=== PATIENT | male | born 1985 | race Caucasian/White ===

== ENCOUNTER → 2022-09-16 13:44 | Outpatient (CLI) | payer OTHER, SELFPAY ==
--- NOTE | 2022-09-16 | DI.RAD.S_ITS ---
PROCEDURE: XR HAND RT 2V INDICATIONS: non-tender mass located at base of right index finger TECHNIQUE: 2 views of the hand acquired. COMPARISON: None. FINDINGS: Bones: No acute fractures or dislocations. Carpal bones are normally aligned. No suspicious bony lesions. Soft tissues: No suspicious soft tissue calcifications. IMPRESSION: No significant osseous abnormality. If there is continued suspicion for a soft tissue mass, MRI of the hand with and without contrast could be performed for further evaluation. Approved by: Rashid Brewer M.D. on 09/16/2022 at 17:03
== END ==
PROVIDERS: Family Provider Physician Assistant; PCP Student in an Organized Health Care Education/Training Program; Referring Provider Student in an Organized Health Care Education/Training Program; Visit Provider Student in an Organized Health Care Education/Training Program
DX: R22.31 Localized swelling, mass and lump, right upper limb (principal)
CPT/HCPCS: 73120